=== PATIENT | female | born 1980 | race Caucasian/White ===

== ENCOUNTER 2018-11-24 20:35 | Emergency (ER) | payer BC, OTHER ==
[~2018-11-24] VITALS: Ht 154.9 cm; Wt 57.7 kg
[2018-11-24 23:34] VITALS: BP 120/85
== END 2018-11-24 23:34 | disposition home or self-care (01) ==
LOC: ED 20:35
DX: H10.212 Acute toxic conjunctivitis, left eye (principal)
CPT/HCPCS: J7030; J7040; V2632

== ENCOUNTER 2018-11-25 20:34 | Emergency (ER) | payer BC, OTHER ==
[~2018-11-25] VITALS: Ht 154.9 cm; Wt 57.2 kg
[2018-11-25 20:41] VITALS: Ht 154.9 cm; Wt 57.2 kg
[2018-11-25 21:33] VITALS: BP 108/54
== END 2018-11-25 21:33 | disposition home or self-care (01) ==
LOC: ED 20:34
DX: S05.92XD Unspecified injury of left eye and orbit, subsequent encounter (principal); Z09 Encounter for follow-up examination after completed treatment for conditions other than malignant neoplasm; X58.XXXD Exposure to other specified factors, subsequent encounter

== ENCOUNTER 2019-06-26 11:53 | Emergency (ER) | payer OTHER ==
[~2019-06-26] VITALS: Ht 154.9 cm; Wt 63.0 kg
[2019-06-26 11:59] VITALS: BP 110/67; Ht 154.9 cm; Wt 63.0 kg
== END 2019-06-26 12:43 | disposition home or self-care (01) ==
LOC: ED 11:53
DX: J11.1 Influenza due to unidentified influenza virus with other respiratory manifestations (principal)
CPT/HCPCS: 87804; J1885; J3010; Q0092; Q0162